=== PATIENT | female | born 1950 | race Caucasian/White ===

== ENCOUNTER 2019-11-22 13:16 | Outpatient (CLI) | payer MEDICARE, OTHER, SELFPAY ==
--- NOTE | 2019-11-22 13:44 | XR_ITS ---
WS: [id number] LEFT SHOULDER: 3 VIEW(S) TECHNIQUE: Internal and external rotation with Y view. HISTORY: PAIN IN LEFT SHOULDER COMPARISON: None available. No fracture or dislocation or soft tissue abnormality. Minimal narrowing of the AC joint with small osteophytes. XR/XR shoulder LT min 2V* [id number] IMPRESSION: Mild AC joint narrowing.
== END 2019-11-22 13:17 | disposition home or self-care (01) ==
LOC: RADWPI 13:19
PROVIDERS: Family Provider Family Medicine; PCP Family Medicine; Visit Provider Nurse Practitioner Family
DX: M25.512 Pain in left shoulder (principal)
CPT/HCPCS: 73030

== ENCOUNTER 2019-11-30 08:36 | Outpatient (CLI) | payer MEDICARE, OTHER, SELFPAY ==
--- NOTE | 2019-11-30 08:43 | MR_ITS ---
WS: [id number] MRI LEFT SHOULDER HISTORY: ACUTE PAIN OF LEFT SHOULDER COMPARISON: 11/22/2019 TECHNIQUE: Multiplanar sequences of the shoulder joint are submitted. Mild AC joint hypertrophy with joint space narrowing. Small amount of increased signal along the AC j oint. Mild bony hypertrophy encroaching upon the supraspinatus muscle and tendon. There is a small am ount of subacromial and subdeltoid bursal fluid. Very small, partial insertion site tear involving the articular surface of the supraspinatus. Tear ex tends through less than 50% of the tendon and a width of 4 mm. No retraction. Subscapularis tendon is normal. No muscle atrophy. There is a small amount of fluid in the subscapularis recess. There is ad jacent edema within the superiormost subscapularis muscle. The tendon is intact. No os acromion. Biceps tendon is in normal position. Moderate narrowing of the glenohumeral joint with loss of cartilage. There is increase fluid in the a xillary pouch. There is increased signal in the middle glenohumeral ligament. Distally the MGL become s thickened with increased signal. Irregular T2 signal in the anterior superior labrum. MR/MR shoulder LT wo con* [id number] IMPRESSION: 1. Small partial articular surface tear footprint supraspinatus tendon. 2. Small amount of fluid in the subacromial and subdeltoid bursa. Small amount of fluid also the glenohumeral joint and the subscapularis recess. 3. Mild synovitis. 4. Suspect partially torn middle glenohumeral ligament and focal tear of the a nterior superior labrum. 5. Small amount of edema in the superiormost subscapularis muscle with the ten don being intact. 6. Mild AC joint arthritis.
== END 2019-11-30 08:37 | disposition home or self-care (01) ==
LOC: RADSHAW 08:36
PROVIDERS: PCP Family Medicine; Visit Provider Nurse Practitioner Family
DX: M25.512 Pain in left shoulder (principal); M65.812 Other synovitis and tenosynovitis, left shoulder; R60.9 Edema, unspecified; M19.012 Primary osteoarthritis, left shoulder
CPT/HCPCS: 73221

== ENCOUNTER 2020-01-05 14:42 | Outpatient (RCR) | payer MEDICARE, OTHER, SELFPAY | END 2020-01-17 23:59 | disposition home or self-care (01) | LOC: SPT 14:42 | PROVIDERS: PCP Family Medicine; Referring Provider Orthopaedic Surgery; Visit Provider Orthopaedic Surgery | DX: M75.42 Impingement syndrome of left shoulder (principal); M75.02 Adhesive capsulitis of left shoulder | CPT/HCPCS: 97110; 97161; 97530 ==

== ENCOUNTER 2020-01-12 06:00 | Outpatient (RCR) | payer MEDICARE, OTHER, SELFPAY | END 2020-01-17 23:59 | disposition home or self-care (01) | LOC: SPT 06:00 | PROVIDERS: PCP Family Medicine; Referring Provider Nurse Practitioner Family; Visit Provider Nurse Practitioner Family | DX: H81.12 Benign paroxysmal vertigo, left ear (principal) | CPT/HCPCS: 95992; 97161 ==

== ENCOUNTER 2020-01-18 06:00 | Outpatient (RCR) | payer MEDICARE, OTHER, SELFPAY | END 2020-02-17 23:59 | disposition home or self-care (01) | LOC: SPT 06:00 | PROVIDERS: PCP Family Medicine; Referring Provider Nurse Practitioner Family; Visit Provider Nurse Practitioner Family | DX: H81.12 Benign paroxysmal vertigo, left ear (principal) | CPT/HCPCS: 95992 ==

== ENCOUNTER 2020-01-18 06:00 | Outpatient (RCR) | payer MEDICARE, OTHER, SELFPAY | END 2020-02-17 23:59 | disposition home or self-care (01) | LOC: SPT 06:00 | PROVIDERS: PCP Family Medicine; Referring Provider Orthopaedic Surgery; Visit Provider Orthopaedic Surgery | DX: H81.12 Benign paroxysmal vertigo, left ear (principal) | CPT/HCPCS: 95992; 97110 ==

== ENCOUNTER 2020-02-18 06:00 | Outpatient (RCR) | payer MEDICARE, OTHER, SELFPAY | END 2020-03-19 23:59 | disposition home or self-care (01) | LOC: SPT 06:00 | PROVIDERS: PCP Family Medicine; Referring Provider Orthopaedic Surgery; Visit Provider Orthopaedic Surgery | DX: M75.02 Adhesive capsulitis of left shoulder (principal) | CPT/HCPCS: 97110 ==

== ENCOUNTER 2020-03-20 09:00 | Outpatient (RCR) | payer MEDICARE, OTHER, SELFPAY | END 2020-04-18 23:59 | disposition home or self-care (01) | LOC: SPT 09:00 | PROVIDERS: PCP Family Medicine; Referring Provider Orthopaedic Surgery; Visit Provider Orthopaedic Surgery | DX: M75.02 Adhesive capsulitis of left shoulder (principal) | CPT/HCPCS: 97110 ==